=== PATIENT | male | born 2005 | race Caucasian/White ===

== ENCOUNTER 2025-06-14 07:39 | Emergency (ER) | payer BC | END 2025-06-14 08:40 | disposition home or self-care (01) | LOC: CSHERS 07:39 | DX: S16.1XXA Strain of muscle, fascia and tendon at neck level, initial encounter (principal); Y04.2XXA Assault by strike against or bumped into by another person, initial encounter; Y93.61 Activity, american tackle football | CPT/HCPCS: 99283 ==